=== PATIENT | male | born 1955 | race African-American/Black ===

== ENCOUNTER 2016-10-21 10:13 | Emergency (ER) | payer MEDICARE ==
[~2016-10-21] VITALS: Ht 165.1 cm; Wt 85.0 kg
[~2016-10-21 10:13] MED LIST: ACTOS30 MG OR; ADLT ASA LOW81 MG PO; ALEVE220 MG OR; ATACAND32 MG OR; BENAZEPRIL40 M1 PO; CENTURY VIT PO; CIPRO XR500 M1 OR; CIPRO XR500 MG PO; CIPROFLOXACN500 MG PO; COREG6.25 MG PO; DILAUDID2 MG PO; DIOVAN320 MG PO; ENTERIC COATED325 MG PO; KEFLEX500 MG OR; LEVEMIR FLEXPEN SC; LORTAB5 PO; METFORMIN500 MG PO; Metformin OR; NAPROSYN500 MG OR; ROBITUSSIN AC OR; ROBITUSSIN DM OR; VITAMIN B CO PO; VITAMIN C500 M1 PO
[2016-10-21] MEDS ORDERED: KEFLEX500 MG PO (11:58)
[2016-10-21 12:00] VITALS: BP 168/90
== END 2016-10-21 12:00 | disposition home or self-care (01) ==
LOC: ED 10:13
DX: S91.331A Puncture wound without foreign body, right foot, initial encounter (principal); W45.0XXA Nail entering through skin, initial encounter; Y93.89 Activity, other specified; Y92.009 Unspecified place in unspecified non-institutional (private) residence as the place of occurrence of the external cause

== ENCOUNTER 2019-06-11 | Emergency (ER) | payer MEDICARE ==
[~2019-06-11] MED LIST changes: +KEFLEX500 MG PO
[2019-06-11 15:17] LABS: HEMATOCRIT 43.4 % (39.0-50.0); HEMOGLOBIN 15.3 g/dl (14.0-18.0); IMMATURE GRANULOCYTES 0.2 % (0.0-5.0); MEAN CELL VOLUME 83.8 fL CALC (80.0-100.0); MEAN CORPUSCULAR HGB 29.5 pG CALC (26.0-32.0); MEAN CORPUSCULAR HGB CONC 35.3 g/dL CAL (32.0-36.0); NEUT# 3.4 thou/uL (1.82-7.42); RED BLOOD COUNT 5.18 mill/uL (4.70-6.10); RED CELL DISTRI WIDTH 13.7 % (11.5-15.5)
[2019-06-11 15:26] LABS: ALBUMIN 4.8 g/dL (3.2-5.0); ALKALINE PHOSPHATASE 52 u/l (38-126); AMYLASE 36 u/l (30-110); ANION GAP 14 (6-22 (CALC)); BUN 15 mg/dL (8-23); BUN/CREATININE RATIO 23 (12-20 (CALC)); CARBON DIOXIDE 26 mmol/l (22-30); CHLORIDE 101 mmol/l (95-108); CREATININE 0.7 mg/dL (0.7-1.3); ETHYL ALCOHOL 0 mg/dl (0-30); GFR > 60 ML/MIN (>=60 (CALC)); GFR FOR AFR.AMER. > 60 ML/MIN (>=60 (CALC)); LIPASE 36 u/l (23-300); MAGNESIUM 1.6 mg/dL (1.6-2.3); POTASSIUM 3.8 mmol/l (3.5-5.1); SGOT/AST 25 u/l (19-48); SODIUM 137 mmol/l (137-146); TOTAL PROTEIN 8.3 g/dL (6.3-8.2)
[2019-06-11 15:27] LABS: BILIRUBIN, TOTAL 0.9 mg/dL (0.0-1.4)
[2019-06-11 15:33] LABS: ACT PARTIAL THROMBO TIME 27.7 SECONDS (20.0-32.5); INTERNATIONAL NORMALIZED RATIO 1.1 RATIO (0.7-1.3); PROTHROMBIN TIME 11.2 SECONDS (9.0-12.5)
[2019-06-11 15:36] LABS: URINE BILIRUBIN - DIPSTICK NEGATIVE (NEGATIVE); URINE BLOOD DIPSTICK NEGATIVE (NEGATIVE); URINE COLOR YELLOW; URINE GLUCOSE - DIPSTICK NEGATIVE (NEGATIVE); URINE KETONE TRACE mg/dL (NEGATIVE); URINE LEUK ESTERASE NEGATIVE (NEGATIVE); URINE NITRITE - DIPSTICK NEGATIVE (Negative); URINE PROTEIN - DIPSTICK NEGATIVE (NEG-TRACE)
[2019-06-11 15:37] LABS: BARBITURATES NEGATIVE (NEGATIVE); COCAINE NEGATIVE (NEGATIVE); METHADONE NEGATIVE (NEGATIVE); OXCYCODONE NEGATIVE (NEGATIVE); TETRAHYDROCANNABIONOL NEGATIVE (NEGATIVE); TRICYLIC ANTIDEPRESSANTS NEGATIVE (NEGATIVE)
[2019-06-11] MEDS ORDERED: MECLIZINE25 MG PO (17:30)
[2019-06-11] MEDS ORDERED: ONDANSETRON4 MG PO (17:30)
== END 2019-06-11 18:35 | disposition left against medical advice (07) ==
DX: R42 Dizziness and giddiness (principal); R07.9 Chest pain, unspecified; I10 Essential (primary) hypertension; E11.9 Type 2 diabetes mellitus without complications; Z79.4 Long term (current) use of insulin; Z91.19 Patient's noncompliance with other medical treatment and regimen
CPT/HCPCS: Q9967

== ENCOUNTER 2021-05-08 08:40 | Day surgery (SDC) | payer MEDICARE ==
[~2021-05-08] VITALS: Ht 165.1 cm; Wt 89.8 kg
[~2021-05-08 08:40] MED LIST changes: +GABAPENTIN300 M2 PO; +LANTUS100 UNIT SC; +MECLIZINE25 MG PO; +MICARDIS80 MG PO; +ONDANSETRON4 MG PO
[2021-05-08 11:54] VITALS: BP 120/75
== END 2021-05-08 12:26 | disposition home or self-care (01) ==
LOC: ENDO 08:40
PROVIDERS: ATTEND Surgery
PROC: 0DBH8ZX Excision of Cecum, Via Natural or Artificial Opening Endoscopic, Diagnostic (ICD-10-PCS; principal; 2021-05-08)
DX: Z12.11 Encounter for screening for malignant neoplasm of colon (principal); D12.0 Benign neoplasm of cecum; K64.8 Other hemorrhoids; I10 Essential (primary) hypertension; E11.9 Type 2 diabetes mellitus without complications; Z79.84 Long term (current) use of oral hypoglycemic drugs; Z79.4 Long term (current) use of insulin

== ENCOUNTER 2021-10-22 13:56 | Emergency (ER) | payer MEDICARE ==
[2021-10-22] VITALS (8 sets, daily range): BP systolic 168–188; BP diastolic 86–99
[~2021-10-22] VITALS: Ht 165.1 cm; Wt 91.0 kg
[2021-10-22] MEDS ORDERED: NAPROXEN500 MG PO (16:57)
[2021-10-22] MEDS ORDERED: FLEXERIL5 M1 PO (16:57)
== END 2021-10-22 17:23 | disposition home or self-care (01) ==
LOC: ED 13:56
DX: M54.16 Radiculopathy, lumbar region (principal); I10 Essential (primary) hypertension; E11.9 Type 2 diabetes mellitus without complications; Z79.84 Long term (current) use of oral hypoglycemic drugs; Z79.4 Long term (current) use of insulin